=== PATIENT | female | born 1950 | race Caucasian/White ===

== ENCOUNTER 2022-04-06 06:15 | Day surgery (SDC) | payer OTHER ==
[2022-03-31 15:23] VITALS: BMI 25.2
[2022-04-06] MEDS ORDERED: ceFAZolin SODIUM 1 GM VIAL ONE ×2 (07:08→07:27)
[2022-04-06] MEDS ORDERED: ERYTHROMYCIN 0.5% OPHTHALMIC OINTMENT 3.5 GM TUBE ONE (07:09)
[2022-04-06] MEDS ORDERED: EPINEPHrine/PF 1 MG/1 ML (1:1,000) AMPULE ONE (07:09)
[2022-04-06] MEDS ORDERED: BUPIVACAINE HCL 50 ML ONE (07:09)
[2022-04-06] MEDS ORDERED: TETRACAINE 0.5% OPHTH SOLN 2 ML BOTTLE ONE (07:09)
[2022-04-06] MEDS ORDERED: LIDOCAINE HCL 1%, 10 MG/ML (20ML VIAL) ONE (07:09)
[2022-04-06] MEDS ORDERED: POVIDONE-IODINE 5% OPHTHALMIC PREP 30 ML SOLUTION ONE (07:09)
[2022-04-06] MEDS ORDERED: PROPOFOL 60 ML ONE (07:25)
[2022-04-06] MEDS ORDERED: MIDAZOLAM HCL 2 MG/2 ML SINGLE DOSE VIAL ONE (07:26)
[2022-04-06] MEDS ORDERED: SUCCINYLCHOLINE CHLORIDE 200 MG/10 ML SYRINGE ONE (07:26)
[2022-04-06] MEDS ORDERED: DEXAMETHASONE SOD PHOSPHATE 4 MG/1 ML VIAL ONE (07:27)
[2022-04-06] MEDS ORDERED: KETOROLAC TROMETHAMINE 30 MG/1 ML VIAL ONE (07:27)
[2022-04-06] MEDS ORDERED: ONDANSETRON 4 MG/2 ML VIAL ONE (07:27)
[2022-04-06] MEDS ORDERED: oxyCODONE HCL 5 MG TABLET PO PRN ×2 (09:12)
[2022-04-06] MEDS ORDERED: ACETAMINOPHEN 325 MG TABLET (FP) PO PRN (09:12)
[2022-04-06] MEDS ORDERED: ONDANSETRON 4 MG/2 ML VIAL IVPUSH PRN (09:12)
[2022-04-06] MEDS ORDERED: PROMETHAZINE HCL 25 MG/1 ML VIAL IVPUSH PRN (09:12)
[2022-04-06 12:10] VITALS: TEMP 97.8
[2022-04-06 12:21] VITALS: BP 127/65; PULSE 68; RESP 18
== END 2022-04-06 10:40 | disposition home or self-care (01) ==
LOC: FASU 06:15
PROVIDERS: ATTEND Ophthalmology
PROC: 08SR0ZZ Reposition Left Lower Eyelid, Open Approach (ICD-10-PCS; principal; 2022-04-06 08:13)
DX: H02.135 Senile ectropion of left lower eyelid (principal)
CPT/HCPCS: 88304-TC; 94760